=== PATIENT | female | born 1955 | race Caucasian/White ===

== ENCOUNTER → 2025-04-09 | Outpatient (CLI) | payer MEDICARE, BC, SELFPAY ==
--- NOTE | 2025-04-09 13:30 | XR_ITS ---
Examination: Breast ultrasound, unilateral, left Date and time of exam: April 09, 2025 1344 hours Comparison August 23, 2024 INDICATIONS: Left breast sonogram August 23, 2024 retroareolar cyst left breast 4 x 3 x 5 mm Technique: Real-time mike scale ultrasonographic imaging performed left breast including all 4 quadrants as well as nipple retroareolar and axillary region. Findings: Cyst 6 x 6 mm 2:00 No solid nodules IMPRESSION: BI-RADS Category 2: Benign findings
--- NOTE | 2025-04-09 14:45 | XR_ITS ---
Examination: Diagnostic digital mammography, unilateral, left Computer aided detection 3-D breast Tomosynthesis, unilateral Date and time of exam: April 09, 2025 1402 hours INDICATIONS: Mammogram July 06, 2024 4 mm focal asymmetry upper outer left breast Technique: Nonmagnified MLO, CC views of the left breast have been obtained, reconstructed from 3-D Tomosynthesis images. R2 computer aided detection program utilized for evaluation of suspicious masses and/or abnormal calcifications. 3-D Tomosynthesis images obtained. Findings: Scattered areas of fibroglandular density Stable focal asymmetry upper outer left breast No interval suspicious masses Impression: BI-RADS category 2: Benign findings Return to yearly follow-up mammography
== END | disposition home or self-care (01) ==
PROVIDERS: PCP Family Medicine; Referring Provider Surgery; Visit Provider Surgery
DX: R92.322 Mammographic fibroglandular density, left breast (principal)
CPT/HCPCS: 76641; 77061; 77065; G0279

== ENCOUNTER → 2025-10-28 | Outpatient (CLI) | payer MEDICARE, BC, SELFPAY ==
--- NOTE | 2025-10-28 13:30 | XR_ITS ---
Examination: Breast ultrasound complete, bilateral Date and time of exam: October 28, 2025, 1340 hours INDICATIONS: Breast cystic disease on ultrasound April 09, 2025 Technique: Real-time grayscale ultrasonographic imaging bilateral breasts, including all 4 quadrants as well as nipple retroareolar and axillary regions. Findings: Sonographic images right breast No cystic or solid mass Sonographic images left breast 2:00 nodule circumscribed 7 x 5 mm Retroareolar cyst 3 x 4 mm IMPRESSION: BI-RADS Category 3: Probably benign findings Recommend 1 additional 6-month left breast mammogram follow-up to document stability of 2:00 nodule described above
--- NOTE | 2025-10-28 14:30 | XR_ITS ---
Examination: Screening digital mammography, bilateral Computer aided detection 3-D breast Tomosynthesis, bilateral Date and time of exam: 10/28/2025, 2:04 p.m. Comparisons: 04/09/2025 Indications: Screening Technique: Nonmagnified MLO, CC views of the breasts to been obtained, reconstructed from 3-D Tomosynthesis images. R2 computer aided detection program utilized for evaluation of suspicious masses and/or abnormal calcifications. 3-D Tomosynthesis images obtained. Technologist: Findings: There are scattered areas of fibroglandular density. No evidence of abnormal masses or suspicious calcifications. Impression: BI-RADS category 1: Negative findings (within normal) Recommend 1 year follow-up mammogram
== END | disposition home or self-care (01) ==
PROVIDERS: PCP Nurse Practitioner Family; Referring Provider Surgery; Visit Provider Surgery
DX: Z12.31 Encounter for screening mammogram for malignant neoplasm of breast (principal); R92.313 Mammographic fatty tissue density, bilateral breasts; N63.21 Unspecified lump in the left breast, upper outer quadrant
CPT/HCPCS: 76641; 77063; 77067